=== PATIENT | female | born 1975 | race Caucasian/White ===

== ENCOUNTER → 2017-06-14 | Outpatient (CLI) | payer OTHER, MEDICAID ==
[~2017-06-14] MED LIST: GADOBUTROL 10 ML VIAL IVP ONE
== END ==
LOC: FIMAGING 09:51
PROVIDERS: ATTEND Psychiatry & Neurology Neurology
DX: R93.8 Abnormal findings on diagnostic imaging of other specified body structures (principal)
CPT/HCPCS: 70543; A9585